=== PATIENT | male | born 1995 | race Caucasian/White ===

== ENCOUNTER 2023-06-15 05:30 | Emergency (ER) | payer OTHER, SELFPAY ==
[2023-06-15 05:34] VITALS: BP 129/109; PULSE 114; RESP 26; TEMP 36.1; O2SAT 96; BMI 31.2
--- NOTE | 2023-06-15 06:27 | RAD_ITS ---
INDICATION: dyspnea EXAMINATION/TECHNIQUE: X-RAY - XR Chest 1 View AP portable. 6:26 AM COMPARISON: None. FINDINGS: LINES/DEVICES: None. LUNGS: No consolidation. No pneumothorax. MEDIASTINUM: Unremarkable. CARDIAC SILHOUETTE: Not enlarged. BONES AND SOFT TISSUES: No acute abnormalities. RAD/Chest 1 View (Portable) IMPRESSION: No evidence of active intrathoracic disease. Electronically Signed: Joi Gilman MD at 6:56 EST ,
[2023-06-15 06:49] VITALS: BP 122/84; PULSE 97; RESP 16; O2SAT 99
--- NOTE | 2023-06-15 07:09 | EDS_ITS ---
HPI History of Present Illness Chief Complaint: Overdose Informant: patient and EMS Narrative Narrative: Patient is a 27-year-old male with no significant past medical history. He reports he was at a constitution party this evening drinking when the next he remembers he was waking up by EMS. EMS states they were called secondary to multiple overdoses and when the patient was found he was unresponsive but breathing. They report they gave him 3 doses of Narcan and he awoke. Patient denies any deliberate ingestion of opioids and he denies any homicidal or suicidal ideation PFSH PFSH Medical History no medical history Allergy/AdvReac Type Severity Reaction Status Date / Time shrimp Allergy Severe Angioedema Verified 06/15/23 05:39 Social History Smoking Status: Current every day smoker tobacco type: cigarettes and e- cigarettes ROS ROS ED Constitutional Constitutional ED: Denies chills or fever(s) Eyes Eyes: Denies change in vision ENT ENT ED: Denies sore throat Cardiovascular Cardiovascular: Denies chest pain Respiratory/Chest Respiratory/Chest: Denies cough or dyspnea Gastrointestinal Gastrointestinal: Denies abdominal pain, diarrhea, nausea or vomiting Genitourinary Genitourinary ED: Denies dysuria Musculoskeletal Musculoskeletal: Denies myalgias Integumentary Denies rash Neurologic Neurologic: Denies headache(s) Psychiatric Psychiatric: Denies suicidal ideation or suicidal thoughts Hematologic/Lymphatic Hematologic/Lymphatic: Denies easy bleeding or easy bruising EXAM Physical Exam Const Vital Signs: 06/15/23 05:34 06/15/23 06:49 Temperature 97 F L Temperature Source Temporal Pulse Rate 114 H 97 Respiratory Rate 26 H 16 Blood Pressure 129/109 H 122/84 H Blood Pressure Mean 115 96 Pulse Ox 96 99 Oxygen Delivery Method Room Air Room Air Positive well nourished and well developed General Appearance ED: well developed HEENT HEENT Narrative: Normocephalic atraumatic No tongue or lip swelling; no oral lesions no airway edema or compromise No signs of infection in the posterior pharynx Eyes PERRL and EOMs intact bilaterally Neck supple Neck Narrative: No nuchal rigidity or meningeal signs noted Chest Wall palpation of chest normal Resp clear to auscultation bilaterally Resp Narrative: Patient is tachypneic with slight accessory muscle use and breath sounds are diminished throughout but overall clear to auscultation Cardio regular rhythm Rate: tachycardic and other Other Details: Tachycardic rate with regular rhythm No murmurs rubs or gallops GI non-tender, non-distended and no masses Auscultation: hypoactive bowel sounds Palpation: soft Extremity normal to inspection Neuro oriented x3, CN's II-XII intact bilaterally and no sensory deficits noted Sensorium / Orientation: alert Motor Exam: strength 5/5 throughout Psych mental status grossly normal Skin no rashes or lesions noted MDM MDM MDM Narrative Medical decision making narrative: Patient arrived to the ER mildly tachycardic and tachypneic consistent with acute opioid withdrawal from stated Narcan from EMS. His pulse ox is in the mid 90s on room air but he does show increased work of breathing and with concern for potential aspiration or flash pulmonary edema from the Narcan I elected to perform a chest x-ray. Chest x-ray revealed no acute findings and patient was watched in the ER and as time passed his work of breathing and his pulse ox improved. Therefore at this time as he denies any intentional overdose there is no need for psychiatric workup as his chest x-ray reveals no acute findings and his work of breathing has improved with time he is otherwise safe for discharge. He also was kept in the ER for over 1 hour which is well above the 30-minute half-life of Narcan which further reduces his risk for return of mental status or respiratory depression History & Record Review Discussion w/independent historian: EMS personnel and Patient Radiography Diagnostic Testing: Clinical Impression(s) from Imaging Studies Chest X-Ray 06/15/23 06:27 IMPRESSION: No evidence of active intrathoracic disease. Electronically Signed: Joi Gilman MD at 6:56 EST , Chest x-ray as interpreted by the emergency medicine physician reveals no acute infiltrate pneumothorax or pleural effusion Discharge Plan Triage Chief Complaint: Overdose ED Provider: Abdifatah Schultz Dx/Rx/DC Orders Clinical Impression: Opioid overdose Instructions: Naloxone Nasal for Overdose Steps, ED Overdose, Opiate Primary Care Provider: Care Physician,No Primary Referrals: Care Physician,No Primary [Primary Care Provider] - Disposition Disposition: Home, Self Care Discharge Date/Time: 06/15/23 07:17
[2023-06-15 07:13] VITALS: BP 134/86; PULSE 78; RESP 18; O2SAT 99
== END 2023-06-15 07:17 | disposition home or self-care (01) ==
PROVIDERS: Emergency Provider Emergency Medicine; Visit Provider Emergency Medicine
DX: T40.2X1A Poisoning by other opioids, accidental (unintentional), initial encounter (principal); R40.4 Transient alteration of awareness; F17.210 Nicotine dependence, cigarettes, uncomplicated; F17.290 Nicotine dependence, other tobacco product, uncomplicated
CPT/HCPCS: 71045; 99283; A4216

== ENCOUNTER 2023-12-13 13:46 | Emergency (ER) | payer SELFPAY ==
[2023-12-13 13:46] VITALS: BP 146/85; PULSE 86; RESP 14; TEMP 36.6; O2SAT 98; BMI 32.5
--- NOTE | 2023-12-13 14:13 | ED.VIS.CHEST ---
HPI History of Present Illness Chief Complaint: Chest Pain Detail of Chief Complaint: Anterior right-sided pleuritic chest pain Informant: patient and spouse/S.O. Onset/Context/Timing Onset: Yesterday Activity at onset: sudden Timing: Intermittent Quality: Positive for Aching Location: Right Chest Current Severity: Only with coughing and breathing Maximum Severity: Moderate Worsened By: Breathing and Coughing Relieved By: Nothing Associated Symptoms: Positive for Cough; Negative for Nausea, Vomiting, Diaphoresis, Dyspnea, Fever, Lightheadedness, Acid Reflux or Palpitations Narrative Narrative: Patient is a 28-year-old male. He does smoke cigarettes as well as marijuana. He presents with superior anterior right-sided pleuritic chest pain that started yesterday. Pain is worse with breathing in and out and coughing. He has a nonproductive cough. He denies history of VTE. He has no risk factors for VTE. He states he has been bruising easily. He denies leg pain, swelling or discoloration. He denies fever, chills or night sweats. He denies rhinorrhea, congestion, postnasal drainage or sore throat. He denies any trauma to his chest. He denies hematuria, melena or hematochezia. Prior Similar Symptoms: No Recent Illness/Hospitalization: No CVD Risk Factors: Positive for Smoking; Negative for Hypertension, Diabetes, Hypercholesterolemia or Family History 1' </=55 PE Risk Factors: Negative for Recent Travel/Surgery, Recent Immobilization, Prior DVT or PE, Cancer or OCP + Smoking + >/=35 TAD Risk Factors: Negative for Marfan's Syndrome, Hypertension or Family History PFSH PFSH Medical History no medical history no medical history Allergy/AdvReac Type Severity Reaction Status Date / Time shrimp Allergy Severe Angioedema Verified 12/13/23 13:47 Social History (Updated 12/13/23 @ 14:[address] Mahesh Virk MD) household members: significant other Smoking Status: Current every day smoker tobacco type: cigarettes and e-cigarettes ROS ROS ED Constitutional Constitutional ED: Denies chills, fever(s), subjective, sweats or weight loss Eyes Eyes: Reports none ENT ENT ED: Denies rhinorrhea or sore throat Cardiovascular Cardiovascular: Reports as per HPI; Denies orthopnea or paroxysmal nocturnal dyspnea Respiratory/Chest Respiratory/Chest: Reports cough and dyspnea; Denies dyspnea on exertion, orthopnea, paroxysmal nocturnal dyspnea or sputum Gastrointestinal Gastrointestinal: Denies abdominal pain, diarrhea, melena, nausea or vomiting Genitourinary Genitourinary ED: Denies dysuria, hematuria or urinary frequency Musculoskeletal Musculoskeletal: Denies arthralgias, back pain or myalgias Integumentary Denies rash Endocrine Endocrinology: Denies cold intolerance or heat intolerance Hematologic/Lymphatic Hematologic/Lymphatic: Denies easy bleeding or easy bruising EXAM Physical Exam Const Vital Signs: 12/13/23 13:46 12/13/23 15:46 12/13/23 16:30 Temperature 97.9 F 98.1 F Temperature Source Temporal Pulse Rate 86 70 70 Respiratory Rate 14 18 18 Blood Pressure 146/85 H Blood Pressure Mean 105 Pulse Ox 98 98 98 Oxygen Delivery Method Room Air Room Air Positive well nourished, well developed and unkempt Constitutional Narrative: BMI is 32.5. General Appearance ED: unkempt, well developed and NAD HEENT Reports moist mucous membranes normocephalic and atraumatic Eyes PERRL and EOMs intact bilaterally General Eye ED: Negative for pale conjunctiva or scleral icterus Neck no lymphadenopathy, supple and no JVD Chest Wall inspection of chest normal and palpation of chest normal Resp normal respiratory effort and clear to auscultation bilaterally Cardio regular rate, regular rhythm, S1 normal heart sound, S2 normal heart sound and no murmurs Peripheral Pulses: pulses 2+ throughout Back/Spine no CVA tenderness Extremity Extremity Narrative: There is no asymmetry, swelling, discoloration, leg vein distention, palpable cords or tenderness along the distribution of the deep venous system. General Extremety ED: Negative for edema General Extremity: Negative for edema Neuro oriented x3 and CN's II-XII intact bilaterally Sensorium / Orientation: awake and alert Psych mental status grossly normal Appearance: unkempt Skin Skin Narrative: Patient has numerous bruises to his extremities. MDM MDM MDM Narrative Medical decision making narrative: With patient complaining of pleuritic chest pain will obtain chest x-ray to assess for pneumonia. Doubt pneumothorax since breath sounds are symmetric. Patient is PERC negative and D-dimer was not obtained. Because of the bruising CBC was obtained assess H&H and platelet count. Lab Data Attestation: I reviewed the patient's lab results. Lab results narrative: CBC is remarkable for elevated indices. Platelet count is normal. Labs: Laboratory Results - last 24 hr 12/13/23 15:53 WBC 10.1 RBC 4.56 L Hgb 14.9 Hct 45.1 MCV 98.9 H MCH 32.7 H MCHC 33.0 RDW Std Deviation 47.0 H RDW Coeff of Noemy 12.9 Plt Count 191 MPV 9.8 Immature Gran % (Auto) 0.500 Neut % (Auto) 81.8 H Lymph % (Auto) 11.5 L [place] % (Auto) 5.5 Eos % (Auto) 0.3 Baso % (Auto) 0.4 Absolute Neuts (auto) 8.3 H Absolute Lymphs (auto) 1.16 Nucleated RBC % 0 Radiography Chest X-Ray - ED: 2 View and Read by ED Physician (Cardiac silhouette size normal. Lung parenchyma normal. [place] is normal. Osseous structures are normal. This independent reviewed interpreted by me at 1453.) Diagnostic Testing: Clinical Impression(s) from Imaging Studies Chest X-Ray 12/13/23 14:40 IMPRESSION: Normal x-ray examination of the chest. Electronically Signed: Karthik Daigle MD at 14:53 EDT , EKG Initial EKG: Attestation: I personally reviewed and interpreted this EKG as follows: Interpretation: Sinus Rhythm (Normal sinus rhythm. Rate is 73. The EKG is normal. VT interval is 184 ms. Cures duration 80 ms. QT duration 376 ms. [place] is normal.) Comments: The EKG was obtained per nurse protocol. Discharge Plan Triage Chief Complaint: Chest Pain ED Provider: Mahesh Virk Dx/Rx/DC Orders Clinical Impression: Pleuritic chest pain, Cough, Tobacco use, Multiple bruises Instructions: ED Pleurisy Primary Care Provider: Care Physician,No Primary Referrals: Gavi Rose [Non-Staff] - 1 Week if not improving Care Physician,No Primary [Primary Care Provider] - Activity Restrictions/Additional Instructions: 1. Is in your best interest to stop smoking. 2. Recommend 4 ibuprofen tablets every 8 hours for the next 5 days Print Language: Upper Sorbian Disposition Disposition: Home, Self Care
--- NOTE | 2023-12-13 14:40 | RAD_ITS ---
STUDY: X-RAY CHEST REASON FOR EXAM: Male, 28 years old. Pleuritic pain right side and cough TECHNIQUE: PA and lateral views of the chest. COMPARISON: 06/15/2023 FINDINGS: The lungs are clear and expanded. There is no demonstrated pleural abnormality. Normal size heart. Normal mediastinum and ascencion. Normal visualized pulmonary arteries. Normal visualized aortic arch and descending thoracic aorta. Normal visualized thoracic spine. Normal visualized ribs, clavicles, and shoulders. There is no demonstrated abnormality of the visualized soft tissue structures of the upper abdomen. RAD/Chest PA and Lateral IMPRESSION: Normal x-ray examination of the chest. Electronically Signed: Karthik Daigle MD at 14:53 EDT ,
--- NOTE | 2023-12-13 15:32 | EKG12_ITS ---
Test Reason : cp Blood Pressure : / mmHG Vent. Rate : 073 BPM Atrial Rate : 073 BPM P-R Int : 184 ms QRS Dur : 088 ms QT Int : 376 ms P-R-T Axes : 027 060 022 degrees QTc Int : 414 ms Sinus rhythm with marked sinus arrhythmia Otherwise normal ECG Confirmed by Fabian Dietz ([id number]), editor department HEMALATHA CONKLIN ([id number]) on 12/16/2023 10:39:21 AM Referred By: Confirmed By:Fabian Dietz
[2023-12-13 15:46] VITALS: PULSE 70; RESP 18; O2SAT 98
--- NOTE | 2023-12-13 15:48 | NURSING ---
NO OLD EKGS
[2023-12-13 15:58] LABS: Absolute Lymphocyte Count 1.16 X10^3/uL (0.83-4.51); Absolute Neutrophil Count 8.3 X10^3/uL (2.0-7.7); Basophil# 0.04 X10^3/uL; Basophil% 0.4 % (0-1); Eosinophil# 0.03 X10^3/uL; Eosinophils% 0.3 % (0-5); Hematocrit 45.1 % (40-54); Hemoglobin 14.9 g/dL (13.0-16.5); Lymphocyte # 1.16 X10^3/ul (0.83-4.51); Lymphocyte % 11.5 % (19-41); Mean Corpuscular Hgb 32.7 pg (27.0-32.0); Mean Corpuscular Volume 98.9 fL (80-94); Mean Platelet Vol. 9.8 fl (6.2-12.0); Monocyte# 0.56 X10^3/uL; Monocyte% 5.5 % (0-10); NRBC Flagged by Analyzer 0 % (0-5); Neutrophil # 8.27 X10^3/uL (2.7-7.7); Neutrophil % 81.8 % (47-70); Platelet Count 191 K/mm3 (150-450); RBC Distribution Width CV 12.9 % (11.6-14.6); Red Blood Count 4.56 M/mm3 (4.6-6.2); White Blood Count 10.1 K/mm3 (4.4-11.0)
[2023-12-13 16:30] VITALS: PULSE 70; RESP 18; TEMP 36.7; O2SAT 98
== END 2023-12-13 16:54 | disposition home or self-care (01) ==
PROVIDERS: Emergency Provider Emergency Medicine; Visit Provider Emergency Medicine
DX: R07.81 Pleurodynia (principal); F17.210 Nicotine dependence, cigarettes, uncomplicated; R05.9 Cough, unspecified; F17.290 Nicotine dependence, other tobacco product, uncomplicated; T14.8XXA Other injury of unspecified body region, initial encounter
CPT/HCPCS: 71046; 85025; 93005; 99282